=== PATIENT | female | born 1965 | race Caucasian/White ===

== ENCOUNTER → 2017-06-01 | Outpatient (CLI) | payer OTHER | LOC: FIMAGING 08:35 | PROVIDERS: ATTEND Family Medicine | DX: Z12.31 Encounter for screening mammogram for malignant neoplasm of breast (principal) | CPT/HCPCS: G0202 ==

== ENCOUNTER → 2018-07-11 | Outpatient (CLI) | payer OTHER | LOC: FIMAGING 08:16 | PROVIDERS: ATTEND Family Medicine | DX: Z12.31 Encounter for screening mammogram for malignant neoplasm of breast (principal); Z80.3 Family history of malignant neoplasm of breast ==

== ENCOUNTER 2018-09-21 05:52 | Day surgery (SDC) | payer OTHER ==
[2018-09-21] MEDS ORDERED: LIDOCAINE 1% 2 ML INJ ID PRN (06:05)
[2018-09-21] MEDS ORDERED: LR 1,000 ML IV ONE (06:05)
[2018-09-21] MEDS ORDERED: MIDAZOLAM 2 MG/2 ML VIAL ONE (07:16)
[2018-09-21] MEDS ORDERED: MIDAZOLAM 2 MG/2 ML VIAL IVP ONE (07:16)
--- NOTE | 2018-09-21 07:16 | PDANEPAE ---
ANE History of Present Illness dysmenorrhea, here for ablation and uterine polypectomy ANE Past Medical History - Cardiovascular History Hx Hypertension: No Hx Arrhythmias: No Hx Chest Pain: No Hx Coronary Artery / Peripheral Vascular Disease: No Hx CHF / Valvular Disease: No Hx Palpitations: No - Pulmonary History Hx COPD: No Hx Asthma/Reactive Airway Disease: No Hx Recent Upper Respiratory Infection: No Hx Oxygen in Use at Home: No Hx Sleep Apnea: No Sleep Apnea Screening Result - Last Documented: Negative - Neurologic History Hx Cerebrovascular Accident: No Hx Seizures: No Hx Dementia: No - Endocrine History Hx Diabetes: No - Renal History Hx Renal Disorders: No - Liver History Hx Hepatic Disorders: No - Neurological & Psychiatric Hx Hx Neurological and Psychiatric Disorders: No - Cancer History Hx Cancer: No - Congenital Disorder History Hx Congenital Disorders: No - GI History Hx Gastrointestinal Disorders: No - Other Health History Other Health History: wears glasses - Chronic Pain History Chronic Pain: No - Surgical History Prior Surgeries: . wisdom teeth extracted ANE Review of Systems Review of Systems: - Exercise capacity METS (RN): 4 METS ANE Patient History - Allergies Allergies/Adverse Reactions: codeine Allergy (Verified 09/18/18 12:00) happened at 4 yo- unknown reaction other than she got worse Sulfa (Sulfonamide Antibiotics) Allergy (Verified 09/18/18 12:00) red and puffy Tetracyclines Allergy (Verified 09/18/18 12:00) Unknown - Home Medications Home Medications: Herbals/Supplements -Info Only 09/18/18 [Last Taken 09/18/18] - NPO status NPO Since - Liquids (Date): 09/20/18 NPO Since - Liquids (Time): 21:00 NPO Since - Solids (Date): 09/20/18 NPO Since - Solids (Time): 19:00 - Smoking Hx Smoking Status: Never smoked - Family Anes Hx Family Hx Anesthesia Complications: none ANE Labs/Vital Signs - Vital Signs Blood Pressure: 115/79 Heart Rate: 85 Respiratory Rate: 14 O2 Sat (%): 97 Height: 170.18 cm Weight: 69.4 kg ANE Physical Exam - Airway Neck exam: FROM Mallampati Score: Class 1 Mouth exam: normal dental/mouth exam - Pulmonary Pulmonary: no respiratory distress - Cardiovascular Cardiovascular: regular rate and rhythym - ASA Status ASA Status: I (anxious) ANE Anesthesia Plan Anesthesia Plan: GA w LMA Total IV Anesthesia: Yes
[2018-09-21] MEDS ORDERED: DEXAMETHASONE 4 MG/ML VIAL ONE (07:21)
[2018-09-21] MEDS ORDERED: ONDANSETRON 4 MG/2 ML VIAL ONE (07:21)
[2018-09-21] MEDS ORDERED: PROPOFOL/EMULSION 500 MG/50 ML BOTTLE IV ONE ×2 (07:21→07:37)
[2018-09-21] MEDS ORDERED: fentaNYL 100 MCG/2 ML INJ ONE ×2 (07:21→07:56)
[2018-09-21] MEDS ORDERED: LIDOCAINE 2% 100 MG/5 ML SYR ONE (07:21)
--- NOTE | 2018-09-21 07:22 | PDHPUP ---
History & Physical Update H&P update statement: This history and physical update is based on an assessment of the patient which was completed after admission or registration (within 24 hours), but prior to the surgery/procedure. H&P update: H&P reviewed & patient examined, no change in patient's condition since H&P completed
[2018-09-21] MEDS ORDERED: ACETAMINOPHEN 500 MG TAB PO PRN (07:53)
[2018-09-21] MEDS ORDERED: ONDANSETRON 4 MG/2 ML VIAL IVP PRN (07:53)
[2018-09-21] MEDS ORDERED: NALOXONE HCL 0.4 MG/ML INJ IVP PRN (07:53)
[2018-09-21] MEDS ORDERED: oxyCODONE IR 5 MG TAB PO PRN (07:53)
[2018-09-21] MEDS ORDERED: MEPERIDINE 25 MG/0.5 ML AMP IVP PRN (07:53)
[2018-09-21] MEDS ORDERED: PROMETHAZINE HCL 25 MG/ML INJ IVP PRN (07:53)
[2018-09-21] MEDS ORDERED: HYDROmorphONE/DILAUDID 2 MG/ML INJ IVP PRN (07:53)
[2018-09-21] MEDS ORDERED: DIAZEPAM 5 MG/ML 1 ML SYR IVP PRN (07:53)
[2018-09-21] MEDS ORDERED: fentaNYL 100 MCG/2 ML INJ IVP PRN (07:53)
--- NOTE | 2018-09-21 08:21 | POSTOPPROG ---
Post Op Note Date of Operation: 09/21/18 Surgeon: Zeenat Holliday Anesthesiologist: Lisa Jones Anesthesia: LMA Pre-op Diagnosis: DUB, polyps Post-op Diagnosis: same Indication: same Procedure: H/S polypectomy , Novasure Findings: large posterior wall polyp Inf/Abcess present in the surg proc area at time of surgery?: No EBL: Minimal
--- NOTE | 2018-09-21 08:55 | GOP ---
DATE OF OPERATION: 09/21/2018 SURGEON: Zeenat Holliday MD ANESTHESIA: General with LMA. ANESTHESIOLOGIST: Homer Jones DO. PREOPERATIVE DIAGNOSIS: 1. Dysfunctional uterine bleeding. 2. Endometrial polyps. POSTOPERATIVE DIAGNOSIS: 1. Dysfunctional uterine bleeding. 2. Endometrial polyps. PROCEDURE PERFORMED: Hysteroscopic polypectomy, NovaSure endometrial ablation. FINDINGS: A moderate sized posterior wall polyp, probably about 0.5 cm. ESTIMATED BLOOD LOSS: Minimal. INDICATIONS: Patient is a 53-year-old who has had problematic menstrual cycles for the past few katrin hs. Ultrasound sonohysterogram showed a moderate sized endometrial polyp. Patient wants definitive treatment with removal of the polyp and ablation to prevent further bleeding. DESCRIPTION OF PROCEDURE: With informed consent signed, patient taken to the operating room, placed under general anesthesia, placed in the low dorsal lithotomy position, prepped and draped in the usua l sterile fashion. Speculum placed in the vagina and tenaculum placed on the cervix. Cervix dilated up to 6.5 mm. Uter us sounded to 7 cm. Hysteroscope placed using normal saline as a filling medium and findings as note d above. The [employer] TruClear rotary blade was placed into the hysteroscope and resection o f the above polyp done without complication. Once it was felt all the tissue was removed, the hyster oscope removed. The net fluid deficit was zero. The NovaSure endometrial ablation device was placed into the uterine cavity and measurements were 6.5 in the length and 3.4 in the width. Integrity paula t passed and NovaSure activated. Burn time was exactly 1 minute. The NovaSure was removed. Patient had a little bleeding and hemostasis was assured. Patient placed in supine position, awakened in op erating, and taken to the recovery room in stable condition, tolerated procedure well. COMPLICATIONS: None. /[id number]/MODL
[2018-09-21 09:51] VITALS: BP 99/65
--- NOTE | 2018-09-21 15:07 | POSTANESTH ---
Post Anesthetic Evaluation Cardiovascular Status: Normal, Stable Respiratory Status: Normal, Stable Level of Consciousness/Mental Status: Can Participate in Eval Pain Control: Adequate, Prn Tx Ordered Nausea/Vomiting Control: Adequate, Prn Tx Ordered Complications Possibly Related to Anesthesia: None Noted
== END 2018-09-21 09:49 | disposition home or self-care (01) ==
LOC: FSGY 05:52
PROVIDERS: ATTEND Obstetrics & Gynecology Gynecology
PROC: 0UDB8ZZ Extraction of Endometrium, Via Natural or Artificial Opening Endoscopic (ICD-10-PCS; principal; 2018-09-21 07:15)
DX: D25.9 Leiomyoma of uterus, unspecified (principal); N93.9 Abnormal uterine and vaginal bleeding, unspecified
CPT/HCPCS: 58563; C1782; J1100; J2001; J2250; J2405; J2704; J3010